=== PATIENT | female | born 1960 | race Caucasian/White ===

== ENCOUNTER 2022-11-14 12:59 | Inpatient (IN) ==
[2022-11-14] MEDS ORDERED: BUPIVACAINE 0.25% PF 30 ML VIAL ONE (13:37)
[2022-11-14] MEDS ORDERED: WATER, STERILE FOR INJ 10 ML VIAL ONE ×2 (13:37→13:38)
[2022-11-14] MEDS ORDERED: LIDOCAINE 1% LOCAL 20 ML VIAL ONE (13:37)
[2022-11-14] MEDS ORDERED: VANCOMYCIN HCL 1000MG/20ML VIAL ONE (13:37)
[2022-11-14] MEDS ORDERED: fentaNYL citrate PF 100 MCG/2 ML VIAL ONE (13:45)
[2022-11-14] MEDS ORDERED: MIDAZOLAM HCL 5 MG/ML 1 ML VIAL ONE (13:45)
--- NOTE | 2022-11-14 14:00 | Pre Anesthesia Assessment ---
Date of Service November 14, 2022 Pre Sedation Assessment Vital Signs Temp Pulse Resp BP Pulse Ox O2 Del Method 11/14/22 13:25 36.8 C 64 16 129/99 97 Room Air Cardiovascular + regular rate and + regular rhythm Respiratory + respiratory effort normal Pre-Sedation Airway Assessment Smoking Status: Never smoker Hx Sleep Apnea: Yes Hx Difficult Intubation: No Short, Thick Neck: No Thyromental Distance: > or= 3.5 Finger Breadths Oral Cavity: + WNL Mallampati Class: IV ASA: ASA3 NPO Status Date of Last Intake of Fluids: 11/14/22 Time of Last Intake of Fluids: 08:00 Last Oral Intake of Fluids Comment: sip with meds Date of Last Intake of Solid Food: 11/13/22 Time of Last Intake of Solid Foods: 20:30 Procedure Planning Contraindications for Sedation: none Current Medications Reviewed: Yes Notes The planned sedation has been discussed with the patient. Informed Consent was obtained. I have identified the patient, determined the appropriateness of sedation and have assessed the patient immediately prior to the procedure. All medicine(s) and interventions are by my order.
--- NOTE | 2022-11-14 14:03 | History & Physical Report ---
Date of Service November 14, 2022 Assessment & Plan (1) Cardiomyopathy: Plan: she has well documented history of a nonischemic cardiomyopathy. [place] heart Association class 2 symptoms. On guideline directed medical therapy. Ejection fraction 25-30%. No revascularization in the past 90 days, no myocardial infarction in the past 40 days. She is anticipated longevity greater than 1 year and appears to be a good candidate for an ICD as primary prevention against sudden cardiac . Additionally, she has a left bundle branch block morphology on her EKG with a QRS duration of 174 milliseconds. She therefore appears to be a good candidate for CHARGE LPN. Will plan on Bi V ICD implant today. History of Present Illness Primary Care Provider: TREMAINE Ambrose Mrs. Salazar is a very pleasant 61-year-old female with history significant for nonischemic cardiomyopathy, LBBB, dyslipidemia/hypertriglyceridemia, and sleep apnea on CPAP. She was referred to Cardiology on 03/15/2022 for cardiomyopathy. In early February, she was returning home from [place] vacation and while walking through the airport, noted dyspnea. She recalls initially noting dyspnea a few months ago but it has gradually progressed. She underwent echo on 03/11/2022 demonstrating severely reduced LV systolic function. Heart cath in March 2022 demonstrated no significant CAD. She has had the following studies/procedures: 1. Cardiac catheterization approximately 2010 [place]: Mild nonobstructive CAD per patient report. 2. Echo 03/11/2022 [place]: Moderately dilated LV. Severely reduced LV systolic function. EF 15-20%. Severe global hypokinesis. Mild LVH. Mild MR. 3. Cardiac cath 03/21/2022: No significant CAD. LVEDP 17. No . Right heart catheter was unable to be advanced via right AC vein. 4. Echo 09/06/2022 [place]: Moderately dilated LV. EF 25 to 30%. Global hypokinesis. No LVH. Septal motion consistent with bundle branch block. No significant valvular abnormalities. Sinus bradycardia in the 50s. Allergies Allergy/AdvReac Type Severity Reaction Status Date / Time No Known Allergies Allergy Unverified 11/14/22 13:39 Home Medications Medication Instructions Recorded Confirmed Type betamethasone dipropionate 0.05 % 1 applic topical DAILY PRN skin 03/02/22 11/14/22 Rx topical cream irritation #45 grams fenofibric acid (choline) 135 mg 135 mg PO DAILY #90 caps 03/02/22 11/14/22 Rx capsule,delayed release venlafaxine 75 mg capsule,extended 75 mg PO DAILY #90 caps 03/09/22 11/14/22 Rx release 24 hr aspirin 81 mg tablet,delayed 81 mg PO DAILY 03/15/22 11/14/22 History release (Adult Aspirin Regimen) fluticasone propionate 50 1 spray intranasal DAILY PRN 03/15/22 11/14/22 History mcg/actuation nasal allergy symptoms spray,suspension omeprazole 20 mg capsule,delayed 20 mg PO DAILY #90 caps 04/14/22 11/14/22 Rx release calcium 650 mg-vitamin D3 12.5 1 tab PO DAILY 04/26/22 11/14/22 History mcg-vitamin K 40 mcg chewable tablet empagliflozin 10 mg tablet 10 mg PO DAILY #90 tabs 06/17/22 11/14/22 Rx (Jardiance) sacubitril 97 mg-valsartan 103 mg 1 tab PO BID #180 tabs 06/17/22 11/14/22 Rx tablet CPAP Machine #1 ea 10/04/22 10/25/22 Rx spironolactone 25 mg tablet 25 mg PO DAILY #30 tabs 10/05/22 11/14/22 Rx carvedilol 12.5 mg tablet 12.5 mg PO BID #180 tabs 10/06/22 11/14/22 Rx Past Med/Surg History Medical History Anxiety Cardiomyopathy (~03/10/22) Dyslipidemia Eczema GERD without esophagitis Hot flashes Hypertriglyceridemia LBBB (left bundle branch block) Right foot pain Surgical History History of ankle surgery History of cardiac cath (~03/21/22) Family History Mother Thyroid disease Heart disease Osteoporosis Myotonic dystrophy Father Heart disease Liver cancer Myocardial infarction Sister Myotonic dystrophy Brother Myotonic dystrophy Diabetes Heart disease Grandfather Myocardial infarction Denies family history of Ovarian cancer Prostate cancer Breast cancer Colorectal cancer Social History Smoking Status: Never smoker Second Hand Exposure: Yes; Do You Dip or Chew Tobacco: No; Hx Alcohol Use: No Hx Substance Use: No Preferred Language: Grenadian Communication Ability: Effective Beliefs That Will Affect Care: None marital status: Current Living Situation: Spouse current occupational status: employed current occupation: accounting Feels Safe at Home: Yes Safety Concerns: Feels Safe At This Time Childhood Exposure to Second-Hand Smoke: No Dental Care, Regularly: No Sunscreen Use: Yes Physical Exam Physical Exam: She is alert and oriented x3. Mood affect appear normal. She answered all questions appropriately. HEENT: Sclerae are anicteric. Pupils are equal and reactive to light and accommodation. Extraocular movements were intact. Neuro: Cranial nerves intact Lungs: normal respiratory effort Cardiac: The rhythm was regular. Extremities: Patient has bilateral radial pulses that are equal in intensity. There is no evidence cyanosis or clubbing. There was no evidence of significant peripheral edema bilaterally. Skin: There are no rashes noted on examination today. Results & Data Results & Data Vital Signs (Past 12 Hours) Vital Signs Temp Pulse Resp BP Pulse Ox O2 Del Method 11/14/22 13:25 36.8 C 64 16 129/99 97 Room Air
[2022-11-14] MEDS ORDERED: ceFAZolin 330 MG/ML 1 GM VIAL ONE (14:35)
[2022-11-14] MEDS ORDERED: oxyCODONE HCL IR 5 MG TAB (IMMEDIATE RELEASE) PO PRN (15:42)
--- NOTE | 2022-11-14 15:42 | Post Anesthesia Assessment ---
Date of Service November 14, 2022 Post Sedation Assessment Vital Signs Temp Pulse Resp BP Pulse Ox O2 Del Method 11/14/22 13:25 36.8 C 64 16 129/99 97 Room Air Recovery Score Activity: Moves 4 extremities Respiration: Deep Breath/Cough Circulation: +/-20% PreAnes Value Consciousness: Arouseable (by name) Oxygen Saturation: > 92% On Room Air Discharge Sedation Level of Care: Fast Track Phase II Post Sedation Plan On clinical assessment, the patient appears to have tolerated the sedation without complications. Patient is recovering as anticipated. Patient will continue to be monitored by nursing and may be discharged when sedation discharge criteria are met per below protocol. Upon Completions of procedure up to 15 minutes continue every 5 minute vital signs and the P.A.R. score; then discharge to a Phase I or Fast Track to Phase II per the following guidelines: * Discharge Patient to appropriate Phase II area if PAR is 8 or greater or return to pre- procedure baseline. The post - procedure orders will be as directed. * If PAR score is less than 8 or not return to pre-procedure baseline then patient will follow Phase I monitoring till PAR is reached for Phase II. The Phase I may be done in procedure room or may call to secure a Phase I area. * If naloxone or flumazenil are used for reversal, hold in Phase I for continued monitoring from when last reversal dose was given for a minimum of 60 minutes or longer pending the nurse and/or physician discretion of patient condition before discharge to Phase II. Please call the Sedation Physician to re-evaluate and complete post-note for discharge to Phase II area. Do NOT discharge from procedure sedation or Phase 1 until post- sedation evaluation note is complete by procedure /sedation MD Sedation Discharge Instructions to be given to the patient at discharge to home.
--- NOTE | 2022-11-14 15:42 | Electrophysiology Report ---
Date of Service November 14, 2022 Electrophysiology Procedure Electrophysiology Procedure Report Reason performed: Insertion of biventricular ICD staff auto air conditioning installer: Nico Smiley MD indication: The patient is a 62-year-old woman with a history of a nonischemic cardiomyopathy. She has persistently low ejection fraction 25-30%. This is despite guideline directed medical therapy. She is [place] heart Association class 2 symptoms. She has not had revascularization last 90 days nor suffered a myocardial infarction past 4 days. She has anticipated longevity greater than 1 year. As such was felt to be a good candidate for a ICD as primary prevention against sudden cardiac . She has left bundle branch block at baseline with a QRS duration greater than 150 milliseconds. Based on her symptoms and ejection fraction was also felt to be a good candidate for CHIEF OF HARBOR PATROL. Procedure detail: The patient was informed of the risks benefits and alternatives to the intended procedure. She understood and wished to proceed. She was taken to the electrophysiology suite in a fasting state. Preoperative antibiotic was administered. Conscious sedation was administered per protocol the patient was monitored electrocardiographically throughout today's procedure. The left upper pectoral area was prepped and draped in usual sterile fashion. This area was anesthetized using subcutaneous menstruation of lidocaine and Marcaine solution. Incision was made at the site and carried down the prepectoralis fascia using sharp dissection. Electrocautery was also floor for dissection as well as for hemostasis. Device pocket was fashioned in the tissues above the pectoralis mu scle. The left axillary vein was subsequently accessed 3 times using modified Seldinger technique. Sheaths were placed over guidewires and used facilitate passage of the pacing leads to the respective chambers. This initially included right ventricular and right atrial pacing leads. adequate sensing threshold parameters were obtained prior to active fixation of this lead to the endocardial surface. The proximal portion leads were then sutured to the prepectoralis fascia using nonabsorbable suture. The remaining guidewire used to facilitate passage of the sheath and guiding catheter for engagement of the coronary sinus. Once engaged limited coronary sinus venography was performed in order to identify suitable target vessel. Standard guidewire techniques were employed in order to deliver the need to the target vessel under fluoroscopic guidance. Adequate sensing threshold parameters as well as absence of diaphragmatic stimulation at high output were confirmed prior to removal of the guiding catheter and sheath. The proximal portion leads then sutured the prepectoralis fascial using nonabsorbable suture. The device pocket was irrigated with antibiotic solution. The leads and device were then placed in the pocket. The pocket was closed in 3 layers of absorbable suture. Steri- Strips and sterile dressing were applied. Device was tested noninvasively prior conclusion the procedure. The patient tolerated procedure well. There were no immediate complications. Equipment used pulse generator: Machinist Instructor Medtronic model number DT MA 1 QQ serial number are [id number] right atrial lead: Machinist Instructor Medtronic model 5. 076 serial number [id number] right ventricular lead: Machinist Instructor Medtronic model 6. 935 mm serial number [id number] coronary sinus lead: Machinist Instructor Medtronic model number 4298 serial number [id number] measured data right atrial lead: P-waves measured 1 millivolt. Pacing threshold 0.75 volts at 0.4 milliseconds with a pacing impedance of 399 Ohms Right ventricular lead: R-waves measured 13.9 millivolts. Pacing threshold was 0.5 volts at 0.4 milliseconds with a pacing impedance of 576 Ohms coronary sinus lead: R-waves were 16 millivolts. Pacing threshold was 2.5 volts at 1 millisecond with a pacing impedance of 969 Ohms impression: Successful implantation of biventricular ICD [facility] Electrophysiology codes Pacing Procedure 1: Pacin BiV electrode w/Pacer / ICD implant, add on code ICD Procedure 1: ICD: 55407 Insert single or dual ICD system Miscellaneous Procedures Procedure 1: EP Miscellaneous: 66930-55 Venography, CS supevsion/interp PG Moderate Sedation Codes Moderate Sedation Codes Procedure 1: Sedation/Anesthesia: 74367 Mod Sedation by the same physician;Init15 Min Child Age 5 & Up Procedure 2: Sedation/Anesthesia: 96567 Mod Sedation by the same physician; Ea [id number] Minutes
[2022-11-14] MEDS ORDERED: ACETAMINOPHEN 325 MG TAB PO PRN (16:13)
[2022-11-14] MEDS: carvediloL 12.5 MG TAB PO SCH (20:39)
[2022-11-14] MEDS: VALSARTAN/SACUBITRIL 103/97MG TAB PO SCH (20:39)
[2022-11-14] MEDS ORDERED: ceFAZolin 1000MG 1,000 MG/7.5 ML SYR IV ONE (23:00)
--- NOTE | 2022-11-15 07:51 | XRay Report ---
TWO VIEW CHEST CLINICAL HISTORY: Pacemaker implantation. FINDINGS: PA and lateral chest radiographs are obtained. No prior studies are available for compariso n at the time of dictation. A 3-lead cardiac AICD has been placed and partially obscures the left mid chest. Leads project over the right atrium, the right ventricle, and the coronary sinus. The heart i s enlarged noting atherosclerotic calcification of the thoracic aorta. The pulmonary vasculature is n oncongested. There is mild bibasilar scarring/atelectasis. No airspace consolidation or pleural effus ion is identified. There is no pneumothorax. The skeletal structures are osteopenic. The bony thorax appears intact. IMPRESSION: 1. A 3-lead cardiac AICD has been implanted as above. No pneumothorax is seen post procedure. 2. Cardiomegaly without radiographic evidence of congestive failure. 3. No airspace consolidation or pleural effusion is identified. ACT 112: Negative or not required by law. Electronically signed by: Bhavesh Adams M.D. 11/15/2022 7:50 AM
--- NOTE | 2022-11-15 07:59 | Discharge Summary ---
Date of Service November 15, 2022 Admission HPI Per Admitting Provider Mrs. Salazar is a very pleasant 61-year-old female with history significant for nonischemic cardiomyopathy, LBBB, dyslipidemia/hypertriglyceridemia, and sleep apnea on CPAP. She was referred to Cardiology on 03/15/2022 for cardiomyopathy. In early February, she was returning home from [place] vacation and [place] walking [place] the airport, noted dyspnea. She recalls initially noting dyspnea a few months ago but it has gradually progressed. She underwent echo on 03/11/2022 demonstrating severely reduced LV systolic function. Heart cath in March 2022 demonstrated no significant CAD. She has had the following studies/procedures: 1. Cardiac catheterization approximately 2010 [place]: Mild nonobstructive CAD per patient report. 2. Echo 03/11/2022 [place]: Moderately dilated LV. Severely reduced LV systolic function. EF 15-20%. Severe global hypokinesis. Mild LVH. Mild MR. 3. Cardiac cath 03/21/2022: No significant CAD. LVEDP 17. No . Right heart catheter was unable to be advanced via right AC vein. 4. Echo 09/06/2022 [place]: Moderately dilated LV. EF 25 to 30%. Global hypokinesis. No LVH. Septal motion consistent with bundle branch block. No significant valvular abnormalities. Sinus bradycardia in the 50s. Principal Diagnosis nonischemic cardiomyopathy Discharge Exam on the day of discharge the patient was feeling well Evaluation of the device implant site did not reveal any evidence of hematoma. Minimal swelling. Mild ecchymosis. No erythema or drainage. Discharge Data Allergies Allergy/AdvReac Type Severity Reaction Status Date / Time No Known Allergies Allergy Unverified 11/14/22 13:39 Procedures Performed Operation Date: 11/14/22 14:00 Actual Procedures p ICD Biventricular Implant - Nico Smiley MD s Insertion Single Lead Only - Nico Smiley MD Ordered Studies 11/14/22 09:45 EP Lab Images for PACS ONCE Hospital Course (1) Cardiomyopathy: Plan 1. Cardiomyopathy: On the day of admission the patient underwent implantation of a biventricular Medtronic ICD. The procedure was uncomplicated. The following morning the device interrogation revealed normal function on all 3 leads. Chest x-ray did not demonstrate pneumothorax. Wound evaluation revealed good healing. Total Time Total Time Spent Total Time Spent (In Minutes): 20 Discharge Plan Discharge Items Patient Disposition: Home - Self-Care Reason For Visit: ICD IMPLANT Discharge Diagnosis: cardiomyopathy Condition on Discharge: Good Activity: Per Instructions section Activity Comment: No lifting left arm above shoulder or behind neck for 6 weeks Lifting: No more than 10 pounds Lifting Comment: No restrictions with right arm Bathing: Keep incision dry Bathing Comment: Keep wound dry and steri-strip intact until f/u next week Driving/Machine Use: Resume 1 day after discharge Non-emergency contact: Study Abroad Coordinator Call non-emergency contact if: you have any medication questions, your symptoms worsen, your pain is not controlled, your temperature is above 101, your wound has increased redness, your wound has increased drainage and your wound pain has increased Follow-up/Referrals: Hallie Briones CRNP [Primary Care Provider] - 11/28/22 8:00 am Diet: Heart Healthy Addtl Attending Provider Instructions: none Stand-Alone Forms: My Gate[employer], Smoking Cessation Medications and DC Order Prescriptions: Continued venlafaxine 75 mg capsule,extended release 24hr 75 mg PO DAILY Qty: 90 3RF omeprazole 20 mg capsule,delayed release(DR/EC) 20 mg PO DAILY Qty: 90 3RF carvedilol 12.5 mg tablet 12.5 mg PO BID Qty: 180 3RF Rx Instructions: must administer with a meal/food aspirin [Adult Aspirin Regimen] 81 mg tablet,delayed release (DR/EC) 81 mg PO DAILY fluticasone propionate 50 mcg/actuation spray,suspension 1 spray intranasal DAILY PRN (Reason: allergy symptoms) Rx Instructions: administer into each nostril betamethasone dipropionate 0.05 % cream 1 applic topical DAILY PRN (Reason: skin irritation) Qty: 45 3RF fenofibric acid (choline) 135 mg capsule,delayed release(DR/EC) 135 mg PO DAILY Qty: 90 3RF (DME) CPAP Machine Misc See Rx Instructions .Route Qty: 1 0RF Rx Instructions: CPAP 10 cm water pressure, C Flex setting #2 with heated humidication, tubing, and supplies. spironolactone 25 mg tablet 25 mg PO DAILY Qty: 30 5RF calcium-vitamin D3-vitamin K 650 mg-12.5 mcg-40 mcg tablet,chewable 1 tab PO DAILY Jardiance 10 mg tablet 10 mg PO DAILY Qty: 90 3RF sacubitril-valsartan 97-103 mg tablet 1 tab PO BID Qty: 180 3RF Discharge Orders: Discharge Order (Routine); Ordered 11/15/22 Ordered By: Nico Balderas/Other Patient Handouts: Understanding Deep Vein Thrombosis, DVT Complications, DVT Post Op Prevention, Preventing Deep Vein Thrombosis Admission Data Admit Date/Time: 11/14/22 14:30 Attending Provider: Nico Smiley Admit Provider: Nico Smiley Primary Care Provider: Hallie Briones Other Interventions: Discharge Summary Assessment (RN) Last Done: 11/15/22 09:25 Coding Level of Care Code 61470 IN/OBS DISCH 30 MIN/LESS Diagnoses Cardiomyopathy I42.9
[2022-11-15] MEDS: VALSARTAN/SACUBITRIL 103/97MG TAB PO SCH (08:53)
[2022-11-15] MEDS: carvediloL 12.5 MG TAB PO SCH (08:53)
[2022-11-15] MEDS ORDERED: VITAMIN K PO SCH (09:00)
[2022-11-15] MEDS ORDERED: SPIRONOLACTONE 25 MG TAB PO SCH (09:00)
[2022-11-15] MEDS ORDERED: EMPAGLIFLOZIN 10 MG TAB PO SCH (09:00)
[2022-11-15] MEDS ORDERED: VENLAFAXINE HCL XR 75 MG CAPXR PO SCH (09:00)
[2022-11-15] MEDS ORDERED: FENOFIBRATE NANOCRYSTALLIZED 145 MG TABLET PO SCH (09:00)
[2022-11-15] MEDS ORDERED: [UNRECOGNIZED DRUG - OTHER] PO SCH (09:00)
[2022-11-15] MEDS ORDERED: ASPIRIN 81 MG ECTAB PO SCH (09:00)
[2022-11-15] MEDS ORDERED: PANTOprazole 40 MG TAB PO SCH (09:00)
[2022-11-15] MEDS ORDERED: CALCIUM PO SCH (09:00)
--- NOTE | 2022-11-17 16:57 | Electrocardiogram Report ---
Test Reason : Blood Pressure : / mmHG Vent. Rate : 062 BPM Atrial Rate : 062 BPM P-R Int : 136 ms QRS Dur : 146 ms QT Int : 472 ms P-R-T Axes : 058 134 -82 degrees QTc Int : 479 ms Atrial-sensed ventricular-paced rhythm with occasional AV dual-paced complexes Abnormal ECG No previous ECGs available Confirmed by Homero Covarrubias ([id number]) on 11/17/2022 4:57:13 PM Referred By: Homero Covarrubias Confirmed By:Homero Covarrubias
== END 2022-11-15 10:24 | disposition home or self-care (01) | DRG 227 ==
LOC: EP 12:59 → 2S 14:30